=== PATIENT | female | born 1965 | race Caucasian/White ===

== ENCOUNTER 2016-11-20 16:40 | Emergency (ER) | payer OTHER ==
[~2016-11-20] VITALS: Ht 167.6 cm; Wt 85.0 kg
[2016-11-20 17:29] VITALS: BP 151/98
--- NOTE | 2016-11-20 19:20 | NUR ---
PT BIB FAMILY C/O LEFT KNEE PAIN X 2 WK NOTED MILD SWELLING VS RLE----+2 POPLITEAL, +2 POSTERIOR TIBIAL, +2 PEDAL PULSES. PT DENIES ANY TRAUMA PT DENIES N/V/D; SKIN IS INTACT, PINK/WARM/DRY; AAOX4, PERRL, UNSTEADY GAIT S/P PAIN; LUNGS CLEAR BL, BREATHING UNLABORED; HR EVEN AND REGULAR, BL PERIPHERAL PULSES PRESENT; BS ACTIVE X4, NO TENDERNESS TO PALPATION. PT DENIES ANY FEVER, CP, SOB, OR COUGH AT THIS TIME; PT STATES 5/10 PAIN AT THIS TIME; VSS; PATIENT POSITIONED FOR COMFORT; HOB ELEVATED; BEDRAILS UP X2; BED DOWN.
--- NOTE | 2016-11-20 19:38 | NUR ---
Patient discharged with v/s stable. Written and verbal after care instructions given and explained. Patient alert, oriented and verbalized understanding of instructions. Ambulatory with to car. All questions addressed prior to discharge. ID band removed. Patient advised to follow up with PMD. Rx of MOTRIN 600MG, NORCO 5MG-325MG given. Patient educated on indication of medication including possible reaction and side effects. Opportunity to ask questions provided and answered.
[2016-11-20 19:57] VITALS: BP 148/82
== END 2016-11-20 19:38 | disposition home or self-care (01) ==
LOC: MED 16:40
DX: S83.422A Sprain of lateral collateral ligament of left knee, initial encounter (principal); J45.909 Unspecified asthma, uncomplicated; I10 Essential (primary) hypertension; F17.210 Nicotine dependence, cigarettes, uncomplicated; X58.XXXA Exposure to other specified factors, initial encounter; Y93.89 Activity, other specified; Y92.89 Other specified places as the place of occurrence of the external cause; Y99.8 Other external cause status
CPT/HCPCS: 73562; 99284

== ENCOUNTER 2017-08-12 19:44 | Emergency (ER) | payer SELFPAY ==
[~2017-08-12] VITALS: Ht 172.7 cm; Wt 77.1 kg
[2017-08-12 19:56] VITALS: BP 150/90
--- NOTE | 2017-08-12 20:03 | NUR ---
to lobby, a/w bed, amb, stable, ermd noted
--- NOTE | 2017-08-12 20:12 | NUR ---
PT TAKEN TO CHAIR C
[2017-08-12] MEDS ORDERED: KETOROLAC 60 MG/2 ML VIAL IM ONE (20:20)
[2017-08-12] MEDS ORDERED: ALBUTEROL SULFATE/IPRATROPIU 3 ML SOL IH ONE (20:20)
[2017-08-12] MEDS ORDERED: ONDANSETRON 4 MG ODT PO ONE (20:20)
--- NOTE | 2017-08-12 20:39 | NUR ---
RT WITH PATIENT
--- NOTE | 2017-08-12 20:48 | NUR ---
Pt seen at chairside by Dr. Christianson with VSS. VILLAGRAN and cough present. Continue to monitor.
[2017-08-12 21:21] VITALS: BP 150/90
--- NOTE | 2017-08-12 21:21 | NUR ---
Patient discharged with v/s stable without fever, SOB, or Dyspnea. Written and verbal after care instructions given and explained. Patient alert, oriented and verbalized understanding of instructions. Ambulatory with steady gait. All questions addressed prior to discharge. ID band removed. Patient advised to follow up with PMD. Rx of Promethazine DM, Axithromycin, Tramdol, Proair HFA given. Patient educated on indication of medication including possible reaction and side effects. Opportunity to ask questions provided and answered.
== END 2017-08-12 21:21 | disposition home or self-care (01) ==
LOC: MED 19:44
DX: J20.9 Acute bronchitis, unspecified (principal); G43.909 Migraine, unspecified, not intractable, without status migrainosus; J32.9 Chronic sinusitis, unspecified; F17.210 Nicotine dependence, cigarettes, uncomplicated; J45.909 Unspecified asthma, uncomplicated; I10 Essential (primary) hypertension
CPT/HCPCS: 71045; 94640; 96372; 99283; J1885; J7620; S0119